=== PATIENT | female | born 1980 | race Caucasian/White ===

== ENCOUNTER 2021-07-13 00:40 | Emergency (ER) | payer MEDICAID ==
[~2021-07-13] VITALS: Ht 152.4 cm; Wt 90.0 kg
[2021-07-13] MEDS ORDERED: HYDROcodon/IBUPROFEN 7.5/200MG 1 TAB TABLET PO ONE (01:30)
[2021-07-13] MEDS ORDERED: HYDROcodon/IBUPROFEN 7.5/200MG 1 TAB TABLET ONE (01:34)
--- NOTE | 2021-07-13 01:42 | PHYS DOC ---
General Adult EDM: Chief Complaint: KNEE SWELLING HPI: HPI: ".. My knee is swollen.. and it so painful.. I don't remember hurting it.. I do get bone problems.. " Patient is a 41 year old female of short statue who presents with right knee pain. Pt. knee is swollen. Range of motion is painful and there is some crepitation. Can do straight leg lift. There is increased pain on anterior draw. Stress on collateral ligaments also elicited pain. Patient distal neurovascular is equal to her left leg. Does not remember a specific injury. 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 (Type II, III are severe and IV does not have blue sclera usually). Has moved into the area recently has no primary care established yet. Patient has taken some ibuprofen that has helped the pain but it is still swollen and tender this weekend. No history of fever or chills. No history immunosuppression. No history of specific ill contact. Review of Systems: Review of Systems: Constitutional: Denies fever or chills Eyes: Denies change in visual acuity HENT: Denies nasal congestion or sore throat Respiratory: Denies cough or shortness of breath Cardiovascular: Denies chest pain or edema GI: Denies abdominal pain, nausea, vomiting, bloody stools or diarrhea : Denies dysuria Musculoskeletal: Complains of right knee pain Integument: Denies rash Neurologic: Denies headache, focal weakness or sensory changes Endocrine: Denies polyuria or polydipsia Lymphatic: Denies swollen glands Psychiatric: Denies depression or anxiety Family History: Family History: There is a family history of osteogenesis imperfecta on her father's side of family, grandfather, aunts and uncles. Patient has 4 children 3 have osteogenesis imperfecta. Her youngest female does not have it Current Medications: Current Meds: Current Medications Medications (Trade) Dose Ordered Sig/Long Start Time Stop Time Status Last Admin Dose Admin Hydrocodone Bitartrate/ Ibuprofen (Vicoprofen 7.5-200) 1 tab STK-MED ONCE 07/13/21 01:34 07/13/21 01:34 DC Allergies: Allergies: Allergies Coded Allergies Type Severity Reaction Last Updated Verified No Known Drug Allergies 07/13/21 No Physical Exam: PE: Constitutional: Moderate acute distress, non-toxic appearance. Very short statue. HENT: Normocephalic, atraumatic, bilateral external ears normal, oropharynx moist, no oral exudates, nose normal. [] Eyes: PERRLA, EOMI, conjunctiva normal, no discharge. Her sclera is blue. Neck: Normal range of motion, no tenderness, supple, no stridor. [] Cardiovascular:Heart rate regular rhythm, no murmur [] Lungs & Thorax: Bilateral breath sounds clear to auscultation [] Abdomen: Bowel sounds normal, soft, no tenderness, no masses, no pulsatile masses. Obese. Skin: Warm, dry, no erythema, no rash. Tattoos. Back: No tenderness, no CVA tenderness. [] Extremities: No tenderness, no cyanosis, no clubbing, ROM intact, no edema. Except findings in right knee as per HPI Neurologic: Alert and oriented X 3, normal motor function, normal sensory function, no focal deficits noted. [] Psychologic: Affect normal, judgement normal, mood normal. [] EKG: EKG: [] Radiology/Procedures: Radiology/Procedures: [][place] [address] IMAGING REPORT Signed PATIENT: NIC JANG ACCOUNT: [id number] : 1980 LOCATION: ER AGE: 41 SEX: F EXAM STATUS: DEP ER ORD. PHYSICIAN: MARIE FRIEND MD REASON: Right knee pain PROCEDURE: KNEE RIGHT 4V Right knee x-rays 4 views HISTORY: Right knee pain. FINDINGS: There may be a suprapatellar joint effusion of the lateral view. Mild bone spurring of the patella. Joint space narrowing and mild bone spurring of the medial tibiofemoral compartment. No fracture. No dislocation. No bone lesion. IMPRESSION: No acute osseous injury. There may be a mild joint effusion. 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 Electronically signed by: Kayla Sharif MD (07/13/2021 3:46 AM) [facility] [place] DICTATED AND SIGNED BY: KAYLA SHARIF MD DATE: 07/13/21 0344 CC: MARIE FRIEND MD; NON,STAFF ~MTH0 0 Heart Score: C/O Chest Pain: N/A Risk Factors: Risk Factors: DM, Current or recent (<one month) smoker, HTN, HLP, family history of CAD, obesity. Risk Scores: Score 0 - 3: 2.5% MACE over next 6 weeks - Discharge Home Score 4 - 6: 20.3% MACE over next 6 weeks - Admit for Clinical Observation Score 7 - 10: 72.7% MACE over next 6 weeks - Early Invasive Strategies Course & Med Decision Making: Course & Med Decision Making Pertinent Labs and Imaging studies reviewed. (See chart for details) Ice packs as needed. Elevate. Rest. Wear Charbel wrap. Use crutches. Follow-up with [facility] [id number] Tylenol and ibuprofen for pain. Consider followup genetic testing especially in children there may be tx if started early. Impression: 1. Rt knee Pain 2. Hx. of osteogenesis imperfecta [] Dragon Disclaimer: Dragon Disclaimer: This electronic medical record was generated, in whole or in part, using a voice recognition dictation system. Departure Departure: Referrals: NON,STAFF (PCP) Dragon Disclaimer This chart was dictated in whole or in part using Voice Recognition software in a busy, high-work load, and often noisy Emergency Department environment. It may contain unintended and wholly unrecognized errors or omissions. Dragon Disclaimer This chart was dictated in whole or in part using Voice Recognition software in a busy, high-work load, and often noisy Emergency Department environment. It may contain unintended and wholly unrecognized errors or omissions. MARIE FRIEND MD Jul 13, 2021 01:42
[2021-07-13 01:44] VITALS: BP 149/84
--- NOTE | 2021-07-13 03:48 | RAD ---
Right knee x-rays 4 views HISTORY: Right knee pain. FINDINGS: There may be a suprapatellar joint effusion of the lateral view. Mild bone spurring of the patella. Joint space narrowing and mild bone spurring of the medial tibiofemoral compartment. No frac ture. No dislocation. No bone lesion. IMPRESSION: No acute osseous injury. There may be a mild joint effusion. Arthrosis of the knee as kassidy cribed above. Electronically signed by: Freddy Sharif MD (07/13/2021 3:46 AM) [facility]
== END 2021-07-13 02:00 | disposition home or self-care (01) ==
LOC: ER 00:40
DX: M25.561 Pain in right knee (principal); R22.41 Localized swelling, mass and lump, right lower limb; Q78.0 Osteogenesis imperfecta
CPT/HCPCS: 73564; 99283

== ENCOUNTER → 2021-08-25 | Emergency (ER) | payer SELFPAY ==
[~2021-08-25] VITALS: Ht 152.4 cm; Wt 90.0 kg
[~2021-08-25] MED LIST: CONTRAST GIVEN. MC PRN; FAMOTIDINE 20 MG/2 ML VIAL IVP ONE; IOHEXOL 300 MG/ML 75 ML VIAL. IV ONE; IV RINGERS SOLUTION,LACTATED 1,000 ML IV SCH; KETOROLAC 30 MG/ML VIAL. IVP ONE; MAGNESIUM HYDROXIDE 2,400 MG/30 ML ORAL.SUSP. PO ONE; ONDANSETRON PF 4 MG/2 ML VIAL. IVP ONE
--- NOTE | 2021-08-25 19:49 | PHYS DOC ---
Past History Past Surgical History: , Tonsillectomy General Adult EDM: Chief Complaint: NAUSEA/VOMITING/DIARRHEA HPI: HPI: "I have been vomiting from generalized abdomen pain does feel overly rough..." Patient is a 41 year old female who presents with nausea and vomiting with generalized abdomen pain. 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 Patient denies any trauma. Denies any bad food. No history of significant ill contacts. Patient has not gotten vaccinations. Patient is accompanied with her . Pt. is somewhat on Lt mid abdomen. Review of Systems: Review of Systems: Constitutional: Denies fever or chills Eyes: Denies change in visual acuity HENT: Denies nasal congestion or sore throat Respiratory: Denies cough or shortness of breath Cardiovascular: Denies chest pain or edema GI: abdominal pain, nausea, vomiting,. Denies bloody stools or diarrhea : Denies dysuria Musculoskeletal: Complains of myalgia and arthralgia Integument: Denies rash Neurologic: Denies headache, focal weakness or sensory changes Endocrine: Denies polyuria or polydipsia Lymphatic: Denies swollen glands Psychiatric: Denies depression or anxiety Family History: Family History: Has had a history of osteopenia imperfecta on father side-grandfather aunts and uncles. Patient has 4 children 3 have osteogenesis imperfecta youngest female does not have it. Current Medications: Current Meds: See nursing for home meds Allergies: Allergies: Allergies Coded Allergies Type Severity Reaction Last Updated Verified No Known Drug Allergies 07/13/21 No Physical Exam: PE: Constitutional: Well developed, well nourished, no acute distress, non-toxic appearance. [] HENT: Normocephalic, atraumatic, bilateral external ears normal, oropharynx moist, no oral exudates, nose normal. [] Eyes: PERRLA, EOMI, conjunctiva blue, no discharge. Neck: Normal range of motion, no tenderness, supple, no stridor. [] Cardiovascular:Heart rate regular rhythm, no murmur [] Lungs & Thorax: Bilateral breath sounds clear to auscultation Abdomen: Bowel sounds normal, soft, Lt mid abdomen tenderness, no masses, no pulsatile masses. [] Skin: Warm, dry, no erythema, no rash. [] Back: No tenderness, no CVA tenderness. [] Extremities: No tenderness, no cyanosis, no clubbing, ROM intact, no edema. [] No cording. No true psoas. Neurologic: Alert and oriented X 3, normal motor function, normal sensory function, no focal deficits noted. [] Psychologic: Affect anxious, judgement normal, mood normal. [] EKG: EKG: My interpretation EKG shows sinus rhythm at 82 bpm. Does have occasional absence a/vconduction. Time of EKG is 20 for 12 hours [] Radiology/Procedures: Radiology/Procedures: [[address] [address] IMAGING REPORT Signed PATIENT: NIC JANG ACCOUNT: [id number] : 1980 LOCATION: ER AGE: 41 SEX: F EXAM STATUS: REG ER ORD. PHYSICIAN: MARIE FRIEND MD REASON: eval Lt Adenexal 7.3 cm cyst PROCEDURE: PELVIS COMPLETE Ultrasound pelvis complete HISTORY: Left adnexal cyst Sonographic examination of the pelvis was performed by transabdominal technique. Multiple static images were obtained. The uterus measures 12.4 x 7.6 0.4 cm. The endometrium is 11 mm in thickness. The right ovary appears normal normal blood flow measures 3.5 x 2.8 x 2.6 cm. The left measures 8.4 x 7.5 x 5.7 cm and contains a 7.5 x 7 x 5 x 5.7 cm cyst. There is normal left ovarian blood flow. IMPRESSION: Left ovarian cyst. This could be benign or malignant. Recommend correlation with CA-125. Recommend a 2-3 month follow-up ultrasound. Electronically signed by: Mounika Medrano III, MD (08/26/2021 12:14 AM) [facility] DICTATED AND SIGNED BY: MOUNIKA MEDRANO III, MD DATE: 08/26/2112 CC: MARIE FRIEND MD; PCP,NO ~MTH0 0 S][address] [address] IMAGING REPORT Signed PATIENT: NIC JANG ACCOUNT: [id number] : 1980 LOCATION: ER AGE: 41 SEX: F EXAM STATUS: REG ER ORD. PHYSICIAN: MARIE FRIEND MD REASON: n.v,/pain PROCEDURE: ACUTE ABDOMEN SERIES Exam: Acute abdominal series INDICATION: Nausea vomiting, pain TECHNIQUE: Frontal view of the chest with upright and supine views of the abdomen Comparisons: None FINDINGS: The cardiomediastinal silhouette and pulmonary vessels are within normal limits. The lung and pleural spaces are clear. Air and stool are noted throughout the colon to level the rectum in a nonobstructive bowel gas pattern. No suspicious masses or calcifications. Visualized osseous structures are unremarkable. IMPRESSION: 1. No acute cardiopulmonary process. 2. Nonobstructive bowel gas pattern. Electronically signed by: Kristy Kelly MD (08/25/2021 10:20 PM) [facility] DICTATED AND SIGNED BY: KRISTY KELLY MD DATE: 08/25/212218 CC: MARIE FRIEND MD; PCP,NO ~MTH0 0 [place] [address] IMAGING REPORT Signed PATIENT: NIC JANG ACCOUNT: [id number] : 1980 LOCATION: ER AGE: 41 SEX: F EXAM STATUS: REG ER ORD. PHYSICIAN: MARIE FRIEND MD REASON: Abd and flank pain, NV HX:Osteogenesis imperfecta Omni 300 75cc PROCEDURE: CT ABD PELV W/ IV CONTRST ONLY Exam: CT of abdomen and pelvis with contrast INDICATION: Abdominal and flank pain, nausea and vomiting TECHNIQUE: Sequential axial images through the abdomen and pelvis obtained following the administration of 74 mL of Isovue-370 IV contrast. Sagittal and coronal reformatted images were reconstructed from the axial data and reviewed. Exposure: One or more of the following in the visualized dose reduction techniqu es were utilized for this examination: 1. Automated exposure control 2. Adjustment of the MA and/or KV according to patient size 3. Use of iterative of reconstructive technique Comparisons: None FINDINGS: Heart size is normal. No pericardial effusion. Visualized lung bases are clear. No pleural effusion. Diffuse hepatic steatosis. Spleen, pancreas, gallbladder and adrenals are unremarkable. No perinephric inflammation or hydronephrosis. Nonobstructing left renal calculus is noted. No ureteral calculi are seen. Bladder is partially distended and not well evaluated. Uterus is nonenlarged. There is a cystic lesion at the left adnexa which measures 7.3 cm in diameter. Large and small bowel are unremarkable. Appendix is normal. No free intra- abdominal air or fluid. No obstruction. Abdominal aorta has a normal course and caliber. Abdominal vasculature is patent. No enlarged intra-abdominal lymph nodes are identified. No suspicious osseous lesions or acute fractures. IMPRESSION: 1. Nonobstructing left renal calculus. No hydronephrosis. 2. Cystic lesion at the left adnexa measuring up to 7.3 cm in diameter. This is favored represent cyst in the left ovary however is incompletely characterized on CT. Ultrasound would better evaluate. 3. Diffuse hepatic steatosis. Electronically signed by: Kristy Kelly MD (08/25/2021 9:59 PM) [facility] DICTATED AND SIGNED BY: KRISTY KELLY MD DATE: 08/25/212147 CC: MARIE FRIEND MD; PCP,NO ~MTH0 0 ] Heart Score: C/O Chest Pain: N/A Risk Factors: Risk Factors: DM, Current or recent (<one month) smoker, HTN, HLP, family history of CAD, obesity. Risk Scores: Score 0 - 3: 2.5% MACE over next 6 weeks - Discharge Home Score 4 - 6: 20.3% MACE over next 6 weeks - Admit for Clinical Observation Score 7 - 10: 72.7% MACE over next 6 weeks - Early Invasive Strategies Course & Med Decision Making: Course & Med Decision Making Pertinent Labs and Imaging studies reviewed. (See chart for details) Must follow up with Dental Technician,., Follow up pending CA-125. Review findings with pt. Impesssion": 1. Abdomen Pain 2. LT. Adenexal Cystic 7.5cm 3. Mild Hypokalemia 4. Hx. of Osteogenesis imperfecta ( Most likely Type I) [] Sander Disclaimer: Sander Disclaimer: This electronic medical record was generated, in whole or in part, using a voice recognition dictation system. Departure Departure: Referrals: PCP,NO (PCP) Sander Disclaimer This chart was dictated in whole or in part using Voice Recognition software in a busy, high-work load, and often noisy Emergency Department environment. It ma y contain unintended and wholly unrecognized errors or omissions. Dragon Disclaimer This chart was dictated in whole or in part using Voice Recognition software in a busy, high-work load, and often noisy Emergency Department environment. It may contain unintended and wholly unrecognized errors or omissions. MARIE FRIEND MD Aug 25, 2021 19:49
[2021-08-25 20:37] LABS: BASO # 0.1 x10^3/uL (0.0-0.2); BASO % 1 % (0-3); EOS # 0.2 x10^3/uL (0.0-0.7); EOS % 3 % (0-3); HEMATOCRIT 38.2 % (36.0-47.0); HEMOGLOBIN 12.9 g/dL (12.0-15.5); LYMPH # 2.6 x10^3/uL (1.0-4.8); LYMPH % 30 % (24-48); MEAN CORPUSCULAR HEMOGLOBIN 29 pg (25-35); MEAN CORPUSCULAR HGB CONC 34 g/dL (31-37); MEAN CORPUSCULAR VOLUME 86 fL (79-100); MONO # 0.4 x10^3/uL (0.0-1.1); MONO % 4 % (0-9); NEUT # 5.4 x10^3uL (1.8-7.7); NEUT % 62 % (31-73); PLATELET COUNT 290 x10^3/uL (140-400); RED BLOOD COUNT 4.43 x10^6/uL (3.50-5.40); RED CELL DISTRIBUTION WIDTH 14.4 % (11.5-14.5); WHITE BLOOD COUNT 8.7 x10^3/uL (4.0-11.0)
[2021-08-25 20:39] LABS: CALCIUM 8.8 mg/dL (8.5-10.1); CREATININE 0.7 mg/dL (0.6-1.0); GFR 92.7; POTASSIUM 3.4 mmol/L (3.5-5.1); PREG TEST PT QUAL NEGATIVE (NEG)
[2021-08-25 20:46] LABS: ALBUMIN 3.5 g/dL (3.4-5.0); DIRECT BILIRUBIN 0.1 mg/dL (0.0-0.2); TOTAL BILIRUBIN 0.3 mg/dL (0.2-1.0)
--- NOTE | 2021-08-25 22:01 | RAD ---
Exam: CT of abdomen and pelvis with contrast INDICATION: Abdominal and flank pain, nausea and vomiting TECHNIQUE: Sequential axial images through the abdomen and pelvis obtained following the administrati on of 74 mL of Isovue-370 IV contrast. Sagittal and coronal reformatted images were reconstructed fro m the axial data and reviewed. Exposure: One or more of the following in the visualized dose reduction techniques were utilized for this examination: 1. Automated exposure control 2. Adjustment of the MA and/or KV according to patient size 3. Use of iterative of reconstructive technique Comparisons: None FINDINGS: Heart size is normal. No pericardial effusion. Visualized lung bases are clear. No pleural effusion. Diffuse hepatic steatosis. Spleen, pancreas, gallbladder and adrenals are unremarkable. No perinephric inflammation or hydronephrosis. Nonobstructing left renal calculus is noted. No ureter al calculi are seen. Bladder is partially distended and not well evaluated. Uterus is nonenlarged. There is a cystic lesio n at the left adnexa which measures 7.3 cm in diameter. Large and small bowel are unremarkable. Appendix is normal. No free intra-abdominal air or fluid. No obstruction. Abdominal aorta has a normal course and caliber. Abdominal vasculature is patent. No enlarged intra-abdominal lymph nodes are identified. No suspicious osseous lesions or acute fractures. IMPRESSION: 1. Nonobstructing left renal calculus. No hydronephrosis. 2. Cystic lesion at the left adnexa measuring up to 7.3 cm in diameter. This is favored represent cy st in the left ovary however is incompletely characterized on CT. Ultrasound would better evaluate. 3. Diffuse hepatic steatosis. Electronically signed by: Kristy Reynolds MD (08/25/2021 9:59 PM) [facility]
[2021-08-25 22:08] LABS: INFLUENZA A PATIENT NEGATIVE (NEGATIVE); INFLUENZA B PATIENT NEGATIVE (NEGATIVE)
[2021-08-25 22:15] LABS: AMPHETAMINE/METHAMPHETAMINE NEG (NEG); BARBITURATES NEG (NEG); BENZODIAZEPINES NEG (NEG); CANNABINOIDS NEG (NEG); COCAINE NEG (NEG); METHADONE NEG (NEG); OPIATES NEG (NEG); PHENCYCLIDINE NEG (NEG)
--- NOTE | 2021-08-25 22:22 | RAD ---
Exam: Acute abdominal series INDICATION: Nausea vomiting, pain TECHNIQUE: Frontal view of the chest with upright and supine views of the abdomen Comparisons: None FINDINGS: The cardiomediastinal silhouette and pulmonary vessels are within normal limits. The lung and pleural spaces are clear. Air and stool are noted throughout the colon to level the rectum in a nonobstructive bowel gas patter n. No suspicious masses or calcifications. Visualized osseous structures are unremarkable. IMPRESSION: 1. No acute cardiopulmonary process. 2. Nonobstructive bowel gas pattern. Electronically signed by: Kristy Reynolds MD (08/25/2021 10:20 PM) [facility]
[2021-08-25 22:31] LABS: BACTERIA,URINE FEW /HPF (0-FEW); BILIRUBIN,URINE NEG (NEG); CLARITY,URINE CLEAR; COLOR,URINE YELLOW; GLUCOSE,URINE NEG (NEG); NITRITE,URINE NEG (NEG); SQUAMOUS EPITHELIAL CELL,UR MOD /LPF; UROBILINOGEN,URINE 0.2 mg/dL (0.2 mg/dL)
--- NOTE | 2021-08-26 00:17 | RAD ---
Ultrasound pelvis complete HISTORY: Left adnexal cyst Sonographic examination of the pelvis was performed by transabdominal technique. Multiple static imag es were obtained. The uterus measures 12.4 x 7.6 0.4 cm. The endometrium is 11 mm in thickness. The right ovary appears normal normal blood flow measures 3.5 x 2.8 x 2.6 cm. The left measures 8.4 x 7.5 x 5.7 cm and contains a 7.5 x 7 x 5 x 5.7 cm cyst. There is normal left o varian blood flow. IMPRESSION: Left ovarian cyst. This could be benign or malignant. Recommend correlation with CA-125. Recommend a 2-3 month follow-up ultrasound. Electronically signed by: Matt Amezqutia III, MD (08/26/2021 12:14 AM) [facility]
[2021-08-26 00:48] VITALS: BP 140/85
--- NOTE | 2021-08-26 07:30 | EKG ---
[address] [address] Test Date: 2021-08-25 Test Time: 20:12:32 Pat Name: NIC JANG Department: Room: Gender: F Scout Sniper: LIZBETH : 1980 Requested By: MARIE FRIEND Order Number: [id number] Reading MD: Measurements Intervals [place] Rate: 82 P: 34 VA: 144 QRS: 54 QRSD: 88 T: 59 QT: 388 QTc: 456 Interpretive Statements SINUS RHYTHM NORMAL ECG RI6.02 No previous ECG available for comparison
== END | disposition home or self-care (01) ==
LOC: ER 19:35
DX: N83.292 Other ovarian cyst, left side (principal); E87.6 Hypokalemia; Z20.822 Contact with and (suspected) exposure to COVID-19
CPT/HCPCS: 36415; 74022; 74177; 76856; 80048; 80076; 80307; 81001; 83690; 84484; 84703; 85025; 86304; 87428; 93005; 96361; 96374; 96375; 99285; J1885; J2405; J3490; J7120; Q9967

== ENCOUNTER 2021-08-31 13:09 | Emergency (ER) | payer MEDICAID ==
[~2021-08-31] VITALS: Ht 152.4 cm; Wt 90.0 kg
[2021-08-31 13:09] VITALS: BP 152/92
[2021-08-31] MEDS ORDERED: ONDANSETRON ODT 4 MG TAB.RAPDIS PO ONE (14:00)
[2021-08-31] MEDS ORDERED: HYDROcodone/APAP 5/325MG 1 TAB TABLET PO ONE (14:00)
[2021-08-31 14:09] LABS: BACTERIA,URINE FEW /HPF (0-FEW); CLARITY,URINE HAZY; COLOR,URINE YELLOW; GLUCOSE,URINE NEG (NEG); NITRITE,URINE NEG (NEG); SQUAMOUS EPITHELIAL CELL,UR MANY /LPF; UROBILINOGEN,URINE 0.2 mg/dL (0.2 mg/dL)
[2021-08-31 14:10] LABS: U PREG PATIENT NEGATIVE (NEG)
[2021-08-31] MEDS ORDERED: HYDR-2155 PO (14:20)
[2021-08-31] MEDS ORDERED: ONDA4TAB12 PO (14:20)
--- NOTE | 2021-08-31 14:22 | PHYS DOC ---
Past History Additional Past Medical Histor: Osteogenesis imperfecta (CHARLOTTE PINEDA APRN) Past Surgical History: , Tonsillectomy (CHARLOTTE PINEDA APRN) Alcohol Use: None (CHARLOTTE PINEDA APRN) General Adult EDM: Chief Complaint: FLANK PAIN HPI: HPI: Patient is a 41-year-old female presents with left lower abdominal pain and flank pain. Patient was seen for same complaints a couple days ago. Denies pain being any worse just unable to control it at home with ibuprofen. Patient states she called ASSOCIATE GENETICS PROFESSOR who said that they could not give her anything for pain since she is not a patient yet. Patient has an appointment scheduled for the . No nausea/vomiting/diarrhea. Denies fevers. History of osteogenesis imperfecta. (CHARLOTTE PINEDA APRN) Review of Systems: Review of Systems: ROS At least 10 ROS systems have been reviewed and are negative except as documented in the HPI. General: Negative except as outlined in HPI above. Skin: Negative except as outlined in HPI above. HEENT: Negative except as outlined in HPI above. Neck: Negative except as outlined in HPI above. Respiratory: Negative except as outlined in HPI above.. Cardiovascular: Negative except as outlined in HPI above. Abdomen: Negative except as outlined in HPI above. : Negative except as outlined in HPI above. Back/MSK: Negative except as outlined in HPI above. Neuro: Negative except as outlined in HPI above. Psych: Negative except as outlined in HPI above. (CHARLOTTE PINEDA APRN) Current Medications: Current Meds: Current Medications Medications (Trade) Dose Ordered Sig/Long Start Time Stop Time Status Last Admin Dose Admin Acetaminophen/ Hydrocodone Bitart (Lortab 5/325) 1 tab 1X ONCE 08/31/21 14:00 08/31/21 14:01 (CHARLOTTE PINEDA APRN) Allergies: Allergies: Allergies Coded Allergies Type Severity Reaction Last Updated Verified No Known Drug Allergies 07/13/21 No (CHARLOTTE PINEDA APRN) Physical Exam: PE: Constitutional: Well developed, well nourished, no acute distress, non-toxic appearance. [] HENT: Normocephalic, atraumatic, bilateral external ears normal, oropharynx moist, no oral exudates, nose normal. [] Eyes: PERRLA, EOMI, conjunctiva normal, no discharge. [] Neck: Normal range of motion, no tenderness, supple, no stridor. [] Cardiovascular:Heart rate regular rhythm, no murmur [] Lungs & Thorax: Bilateral breath sounds clear to auscultation [] Abdomen: Bowel sounds normal, soft, left lower abdominal tenderness Skin: Warm, dry, no erythema, no rash. [] Back: No tenderness, leftsided CVA tenderness. [] Extremities: No tenderness, no cyanosis, no clubbing, ROM intact, no edema. [] Neurologic: Alert and oriented X 3, normal motor function, normal sensory function, no focal deficits noted. [] Psychologic: Affect normal, judgement normal, mood normal. [] (CHARLOTTE PINEDA APRN) Current Patient Data: Vital Signs: Vital Signs Date Time Temp Pulse Resp B/P (MAP) Pulse Ox O2 Delivery O2 Flow Rate FiO2 08/31/21 13:09 97.7 92 16 152/92 (112) 98 Room Air (CHARLOTTE PINEDA APRN) EKG: EKG: [] (CHARLOTTE PINEDA APRN) Radiology/Procedures: Radiology/Procedures: [] (CHARLOTTE PINEDA APRN) Heart Score: C/O Chest Pain: No Risk Factors: Risk Factors: DM, Current or recent (<one month) smoker, HTN, HLP, family history of CAD, obesity. Risk Scores: Score 0 - 3: 2.5% MACE over next 6 weeks - Discharge Home Score 4 - 6: 20.3% MACE over next 6 weeks - Admit for Clinical Observation Score 7 - 10: 72.7% MACE over next 6 weeks - Early Invasive Strategies (CHARLOTTE PINEDA APRN) Course & Med Decision Making: Course & Med Decision Making Pertinent Labs and Imaging studies reviewed. (See chart for details) [] 41-year-old female presents with left lower abdominal pain and flank pain. Patient was seen a couple of days ago for same complaints. Patient denies pain being any worse. Patient is requesting pain medication and nausea medication. Patient has a follow-up appointment on the with [facility]. Patient was told she had an ovarian cyst on his last visit. Pain and nausea treated. Sending patient home with a prescription for hydrocodone and Zofran until she can follow-up on with ASS[facility]ET[facility].Urine positive for Leuks,WBC. Antibiotic sent to pharmacy for UTI. Patient is also requesting a work note. Patient's appreciative and okay with discharge plan. Discussed return precautions at length. Patient verbalized understanding of discharge instructions. (CHARLOTTE PINEDA APRN) Course & Med Decision Making I was the Attending physician on the above date of service of this patient. This patient was evaluated, examined, treated, and dispositioned from the emergency department by the mid-level practitioner. Although I was working at the time , no assistance was requested. Electronically signed, Fatimah Bell DO (FATIMAH BELL DO) Sander Disclaimer: Sander Disclaimer: This electronic medical record was generated, in whole or in part, using a voice recognition dictation system. (CHARLOTTE PINEDA APRN) Departure Departure: Impression: Primary Impression: Abdominal pain Qualified Codes: R10.32 - Left lower quadrant pain Disposition: HOME / SELF CARE / HOMELESS Condition: STABLE Referrals: PCP,NO (PCP) Patient Instructions: Abdominal Pain Additional Instructions: You are seen emergency room for abdominal pain. Please make sure you keep your appointment scheduled for the with [facility]ET[facility] PROF[facility] for further management. Sending pain and nausea medication to the pharmacy for pickup. Please return to emergency room if you have worsening symptoms or concerns which is an increase in abdominal pain, uncontrollable nausea and vomiting. EMERGENCY DEPARTMENT GENERAL DISCHARGE INSTRUCTIONS Thank you for coming to [facility] (ED) today and trusting us with you care. We trust that you had a positivie experience in our Emergency Department. If you wish to speak to the department management, you may call the director at [phone]. YOUR FOLLOW UP INSTRUCTIONS ARE FOLLOWS: 1. Do you have a private Doctor? If you do not have a private doctor, please ask for a resource list of physicians or clinics that may be able to assist you with follow up care. 2. The Emergency Physician has interpreted your x-rays. The X-Ray specialist will also review them. If there is a change in the findings, you will be notified in 48 hours when at all possible. 3. A lab test or culture has been done, your results will be reviewed and you will be notified if you need a change in treatment. ADDITIONAL INSTRUCTIONS AND INFORMATION: 1. Your care today has been supervised by a physician who is specially trained in emergency care. Many problems require more than one evaluation for a complete diagnosis and treatment. We recommend that you schedule your follow up appointment as recommended to ensure complete treatment of you illness or injury. If you are unable to obtain follow up care and continue to have a problem, or if your condition worsens, we recommend that you return to the ED. 2. We are not able to safely determine your condition over the phone nor are we able to give sound medical advice over the phone. For these safety reasons, if you call for medical advice we will ask you to come to the ED for further evaluation. 3. If you have any questions regarding these discharge instructions please call the ED at [phone]. SAFETY INFORMATION: In the interest of safety, wellness, and injury prevention; we encourage you to wear your sealbelt, if you smoke; quite smoking, and we encourage family to use a protective helmet for bicycling and other sporting events that present an increased risk for head injury. IF YOUR SYMPTOMS WORSEN OR NEW SYMPTOMS DEVELOP, OR YOU HAVE CONCERNS ABOUT YOUR CONDITION; OR IF YOUR CONDITION WORSENS WHILE YOU ARE WAITING FOR YOUR FOLLOW UP APPOINTMENT; EITHER CONTACT YOUR PRIMARY CARE DOCTOR, THE PHYSICIAN WHOSE NAME AND NUMBER YOU WERE GIVEN, OR RETURN TO THE ED IMMEDIATELY. Scripts Nitrofurantoin Monohyd/M-Cryst (MACROBID 100 MG CAPSULE) 100 Mg Capsule 100 CAP PO BID for UTI for 5 Days, #10 CAP Prov: CHARLOTTE PINEDA APRN 08/31/21 Ondansetron (ONDANSETRON ODT) 4 Mg Tab.rapdis 1 TAB PO PRN Q6-8HRS PRN for NAUSEA/VOMITING, #16 TAB 0 Refills Prov: CHARLOTTE PINEDA APRN 08/31/21 Hydrocodone Bit/Acetaminophen (HYDROCODONE-APAP 5-325 ) 1 Each Tablet 1-2 TAB PO PRN Q6HRS PRN for PAIN for 3 Days, #12 TAB 0 Refills Prov: CHARLOTTE PINEDA APRN 08/31/21 CHARLOTTE PINEDA APRN Aug 31, 2021 14:22 FATIMAH BELL DO Sep 04, 2021 06:43
[2021-08-31] MEDS ORDERED: NITR100C62 PO (14:44)
== END 2021-08-31 14:36 | disposition home or self-care (01) ==
LOC: ER 13:09
DX: R10.32 Left lower quadrant pain (principal)
CPT/HCPCS: 81001; 81025; 87086; 87147; 99283; Q0162

== ENCOUNTER 2021-09-05 21:59 | Emergency (ER) | payer MEDICAID ==
[~2021-09-05] VITALS: Ht 152.4 cm; Wt 90.0 kg
[~2021-09-05 21:59] MED LIST changes: -CONTRAST GIVEN. MC PRN; -FAMOTIDINE 20 MG/2 ML VIAL IVP ONE; +HYDR-2155 PO; -IOHEXOL 300 MG/ML 75 ML VIAL. IV ONE; -IV RINGERS SOLUTION,LACTATED 1,000 ML IV SCH; -KETOROLAC 30 MG/ML VIAL. IVP ONE; -MAGNESIUM HYDROXIDE 2,400 MG/30 ML ORAL.SUSP. PO ONE; +NITR100C62 PO; +ONDA4TAB12 PO; -ONDANSETRON PF 4 MG/2 ML VIAL. IVP ONE
--- NOTE | 2021-09-05 22:23 | PHYS DOC ---
Past History Additional Past Medical Histor: Osteogenesis imperfecta Past Surgical History: , Tonsillectomy Alcohol Use: None General Adult EDM: Chief Complaint: RIB PAIN HPI: HPI: ".. My cyst pain in radiates to my ribs now... My appointment was canceled because of the snowstorm and now my promise not to October 02 I want a pain meds at this onset and antibiotic today.." Patient is a 41 year old fe,a;e who presents with above hx and complaints of pain in her ribs that is her ovarian cyst pain. Pt. seen previously for Lt Ovarian cyst. Did have blood flow on US exam. Pt. to follow up with [facility] COUNSEL[facility]. Reportedly visit was cancel because of snow and no referral . Discussed findings tonight with Dr. Walsh. He will follow pt. if unable to get in to director of health education. Pt. declined further US / CT at this time . Will accept fluids and blood labs. Review of Systems: Review of Systems: Constitutional: Denies fever or chills Eyes: Denies change in visual acuity HENT: Denies nasal congestion or sore throat Respiratory: Denies cough or shortness of breath Cardiovascular: Denies chest pain or edema GI: Complains of abdominal pain, nausea, vomiting,. Denies bloody stools or diarrhea : Denies dysuria Musculoskeletal: Denies back pain or joint pain Integument: Denies rash Neurologic: Denies headache, focal weakness or sensory changes Endocrine: Denies polyuria or polydipsia Lymphatic: Denies swollen glands Psychiatric: Denies depression or anxiety Family History: Family History: Osteogenic imperfecta Current Medications: Current Meds: See nursing for home meds Allergies: Allergies: Allergies Coded Allergies Type Severity Reaction Last Updated Verified No Known Drug Allergies 07/13/21 No Physical Exam: PE: Constitutional: Mild distress, non-toxic appearance. [] HENT: Normocephalic, atraumatic, bilateral external ears normal, oropharynx moist, no oral exudates, nose normal. [] Eyes: PERRLA, EOMI, conjunctiva blue, no discharge. [] Neck: Normal range of motion, no tenderness, supple, no stridor. [] Cardiovascular:Heart rate regular rhythm, no murmur [] Lungs & Thorax: Bilateral breath sounds apex auscultation [] Abdomen: Bowel sounds decreased, soft, left lower and flank tenderness, no masses, no pulsatile masses. Mild distention Skin: Warm, dry, no erythema, no rash. [] Back: No tenderness, no CVA tenderness. [] Extremities: No tenderness, no cyanosis, no clubbing, ROM intact, no edema. [] No psoas sign. No cording. Neurologic: Alert and oriented X 3, normal motor function, normal sensory function, no focal deficits noted. [] Psychologic: Affect anxious, judgement normal, mood normal. [] EKG: EKG: [] Radiology/Procedures: Radiology/Procedures: [] Heart Score: C/O Chest Pain: N/A Risk Factors: Risk Factors: DM, Current or recent (<one month) smoker, HTN, HLP, family history of CAD, obesity. Risk Scores: Score 0 - 3: 2.5% MACE over next 6 weeks - Discharge Home Score 4 - 6: 20.3% MACE over next 6 weeks - Admit for Clinical Observation Score 7 - 10: 72.7% MACE over next 6 weeks - Early Invasive Strategies Course & Med Decision Making: Course & Med Decision Making Pertinent Labs and Imaging studies reviewed. (See chart for details) Clear fluids if active vomiting. Follow up senior rd engineer. Take disc with you. Follow up the CA 125 results and pending labs. May increase Zofran up to 8 mg 4 times a day for nausea. Call Dr. Walsh office [phone] Impression: 1. Ovarian Cyst 2. Osteogenesis imperfecta- ( Most likely Type I) 3. Abdomen Pain [] Dragon Disclaimer: Dragon Disclaimer: This electronic medical record was generated, in whole or in part, using a voice recognition dictation system. Departure Departure: Referrals: PCP,NO (PCP) Dragon Disclaimer This chart was dictated in whole or in part using Voice Recognition software in a busy, high-work load, and often noisy Emergency Department environment. It may contain unintended and wholly unrecognized errors or omissions. Dragon Disclaimer This chart was dictated in whole or in part using Voice Recognition software in a busy, high-work load, and often noisy Emergency Department environment. It may contain unintended and wholly unrecognized errors or omissions. MARIE FRIEND MD Sep 05, 2021 22:23
[2021-09-05] MEDS ORDERED: diphenhydrAMINE 50 MG/ML VIAL IV ONE (23:00)
[2021-09-05] MEDS ORDERED: IV RINGERS SOLUTION,LACTATED 1,000 ML IV SCH (23:00)
[2021-09-05] MEDS ORDERED: KETOROLAC 30 MG/ML VIAL. IVP ONE (23:00)
[2021-09-05] MEDS ORDERED: PROCHLORPERAZINE 10 MG/2 ML VIAL. IV ONE (23:00)
[2021-09-05 23:33] LABS: BASO # 0.1 x10^3/uL (0.0-0.2); BASO % 1 % (0-3); EOS # 0.2 x10^3/uL (0.0-0.7); EOS % 3 % (0-3); HEMATOCRIT 38.3 % (36.0-47.0); HEMOGLOBIN 12.8 g/dL (12.0-15.5); LYMPH # 2.8 x10^3/uL (1.0-4.8); LYMPH % 34 % (24-48); MEAN CORPUSCULAR HEMOGLOBIN 29 pg (25-35); MEAN CORPUSCULAR HGB CONC 33 g/dL (31-37); MEAN CORPUSCULAR VOLUME 86 fL (79-100); MONO # 0.4 x10^3/uL (0.0-1.1); MONO % 5 % (0-9); NEUT # 4.6 x10^3uL (1.8-7.7); NEUT % 57 % (31-73); PLATELET COUNT 292 x10^3/uL (140-400); RED BLOOD COUNT 4.44 x10^6/uL (3.50-5.40); RED CELL DISTRIBUTION WIDTH 14.6 % (11.5-14.5); WHITE BLOOD COUNT 8.1 x10^3/uL (4.0-11.0)
[2021-09-05 23:43] LABS: CALCIUM 8.6 mg/dL (8.5-10.1); CREATININE 0.7 mg/dL (0.6-1.0); GFR 92.7; POTASSIUM 3.3 mmol/L (3.5-5.1)
[2021-09-05 23:50] LABS: ALBUMIN 3.4 g/dL (3.4-5.0); DIRECT BILIRUBIN 0.1 mg/dL (0.0-0.2); TOTAL BILIRUBIN 0.3 mg/dL (0.2-1.0); TOTAL PROTEIN 6.9 g/dL (6.4-8.2)
[2021-09-06 01:00] VITALS: BP 114/68
== END 2021-09-06 01:04 | disposition home or self-care (01) ==
LOC: ER 21:59
DX: N83.202 Unspecified ovarian cyst, left side (principal); Q78.0 Osteogenesis imperfecta; Z98.890 Other specified postprocedural states
CPT/HCPCS: 36415; 80048; 80076; 81025; 85025; 86304; 96361; 96374; 96375; 99284; J0780; J1200; J1885; J7120